=== PATIENT | male | born 1955 | race Caucasian/White ===

== ENCOUNTER 2018-08-24 09:32 | Observation (INO) | payer BC ==
[~2018-08-24] VITALS: Ht 167.6 cm; Wt 73.9 kg
[2018-08-24 10:11] LABS: BASO % 0.7 % (0.0-2.0); EOS # 0.1 (0.0-0.7); EOS % 1.2 % (0-4.0); GRAN # 4.2 (1.4-6.5); GRAN % 72.2 % (42.2-75.2); HEMOGLOBIN 14.8 g/dl (13.5-18.0); LYMPH # 1.1 (1.2-3.4); LYMPH % 19.5 % (20.0-51.0); MEAN CELL VOLUME 91 fl (80.0-100.0); MEAN CORPUSCULAR HEMOGLOBIN 31 pg (27.0-31.0); MEAN CORPUSCULAR HGB CONC 34 g/dl (33.0-37.0); MEAN PLATELET VOLUME 9.3 fl (7.4-10.4); MONO # 0.4 (0.1-0.6); MONO % 6.2 % (1.7-9.3); PLATELET COUNT 189 K/mm3 (130-400); RED BLOOD COUNT 4.85 M/mm3 (4.20-5.60); REDCELL DISTRIBUTION WIDTH-CV 13.2 % (11.5-14.5)
[2018-08-24 10:16] LABS: INR 1.1 (0.8-3.0); PROTHROMBIN TIME 12.4 SECONDS (9.7-12.8)
[2018-08-24 10:22] LABS: ALANINE AMINOTRANSFERASE 46 U/L (21-72); ALBUMIN 4.4 gm/dL (3.5-5.0); ALKALINE PHOSPHATASE 74 U/L (50-136); ANION GAP 4 mmol/L (7-16); AST,SGOT 36 U/L (15-37); BILIRUBIN,TOTAL 1.6 mg/dL (0.0-1.0); BLOOD UREA NITROGEN 10 mg/dL (9-20); CALCIUM 9.5 mg/dL (8.4-10.2); CARBON DIOXIDE 32 mmol/L (22-30); CHLORIDE 105 mmol/L (98-107); CREATININE, serum 0.68 mg/dL (0.66-1.25); GLUCOSE 114 mg/dL (74-106); POTASSIUM 4.5 mmol/L (3.4-5.0); SODIUM 141 mmol/L (137-145); TOTAL PROTEIN 7.4 gm/dL (6.4-8.2)
[2018-08-24 10:33] LABS: TROPONIN-I < 0.012 ng/mL (0.000-0.034)
[2018-08-24 11:37] LABS: COLLECTION METHOD CLEAN CATCH
[2018-08-24 11:42] LABS: MUCOUS Present /lpf; PH 8 (5-8); SQUAMOUS EPITHELIAL 0-2 /hpf; URINE APPEARANCE Clear; URINE BACTERIA None Seen /hpf; URINE BILIRUBIN Negative (NEGATIVE); URINE BLOOD Negative (NEGATIVE); URINE COLOR Straw; URINE GLUCOSE Negative (NEGATIVE); URINE KETONE Trace (NEGATIVE); URINE LEUKOCYTE ESTERASE Negative (NEGATIVE); URINE NITRATE Negative (NEGATIVE); URINE PROTEIN(semi-quant) Negative (NEGATIVE); URINE RBC 0-2 /hpf; URINE UROBILINOGEN Negative (NEGATIVE); URINE WBC 0-2 /hpf
[2018-08-24] MEDS ORDERED: MULTIPLE VITAMI1 TA5 PO (13:31)
[2018-08-24] MEDS ORDERED: VITAMIN C500 MG PO (13:32)
[2018-08-24] MEDS ORDERED: OMEGA-3 1000 MG1 CAP PO (13:32)
[2018-08-24] MEDS ORDERED: VITAMIN A10k PO (13:32)
[2018-08-24] MEDS ORDERED: MAGNESIUM200 MG (13:33)
[2018-08-24] MEDS ORDERED: NATURAL FLAX1000 MG PO (13:33)
[2018-08-24 14:28] LABS: CHOLESTEROL RISK RATIO 5.1
[2018-08-24 14:30] VITALS: BP 123/72; PULSE 65; TEMP 97.9
[2018-08-24 15:09] VITALS: BP 123/72; PULSE 18; PULSE 65; TEMP 97.9
[2018-08-24 16:48] VITALS: BP 135/78; PULSE 79; TEMP 97.7
[2018-08-24 20:10] VITALS: BP 120/73; PULSE 96; TEMP 98.1
[2018-08-24 23:21] VITALS: BP 118/65; PULSE 79; TEMP 98.1
[2018-08-25 03:38] VITALS: BP 124/65; PULSE 96; TEMP 98.1
[2018-08-25 05:47] LABS: BASO # 0.1 (0.0-0.2); BASO % 0.7 % (0.0-2.0); EOS # 0.2 (0.0-0.7); EOS % 2.4 % (0-4.0); GRAN # 3.9 (1.4-6.5); GRAN % 53.9 % (42.2-75.2); HEMATOCRIT 41.6 % (42.0-52.0); LYMPH # 2.5 (1.2-3.4); LYMPH % 35.4 % (20.0-51.0); MEAN CELL VOLUME 90 fl (80.0-100.0); MEAN CORPUSCULAR HEMOGLOBIN 30 pg (27.0-31.0); MEAN CORPUSCULAR HGB CONC 34 g/dl (33.0-37.0); MEAN PLATELET VOLUME 9.8 fl (7.4-10.4); MONO # 0.5 (0.1-0.6); MONO % 7.3 % (1.7-9.3); PLATELET COUNT 197 K/mm3 (130-400); RED BLOOD COUNT 4.62 M/mm3 (4.20-5.60); REDCELL DISTRIBUTION WIDTH-CV 13.4 % (11.5-14.5)
[2018-08-25 06:07] LABS: CALCIUM 8.9 mg/dL (8.4-10.2); CREATININE, serum 0.81 mg/dL (0.66-1.25); POTASSIUM 3.9 mmol/L (3.4-5.0)
[2018-08-25 07:32] VITALS: BP 107/69; PULSE 72; TEMP 98
[2018-08-25 11:01] VITALS: BP 118/71; PULSE 70; TEMP 98.2
[2018-08-25] MEDS ORDERED: ANTIVERT 25MG25 MG PO (14:50)
[2018-08-25] MEDS ORDERED: ASPIRIN 81M81 MG/TA2 PO (14:51)
== END 2018-08-25 16:00 | disposition home or self-care (01) ==
LOC: COL.ER 09:32 → SURG 13:45
PROVIDERS: Emergency Medicine; Internal Medicine
DX: R42 Dizziness and giddiness (principal); R03.0 Elevated blood-pressure reading, without diagnosis of hypertension; K21.9 Gastro-esophageal reflux disease without esophagitis
CPT/HCPCS: 99222-AI; G0378; G8978-GP; G8979-GP; J1644; J2405; J2550; J7040